=== PATIENT | male | born 1960 | race Caucasian/White ===

== ENCOUNTER 2024-10-23 13:57 | Outpatient (CLI) | payer OTHER, SELFPAY ==
--- NOTE | 2024-10-23 11:45 | DI.RAD_ITS ---
Exam(s) XR LUMBAR SPINE COMP W FLEX/EX EXAM: XR LUMBAR SPINE COMP W FLEX/EX CLINICAL HISTORY: pain M47.816 SPONDYLOSIS M54.16 RADICULOPATHY M51.369 DISC DEGENERATION. TECHNIQUE: 2D digital imaging was performed of the lumbar spine. Seven images were obtained. AP, l ateral, right oblique, left oblique, flexion, extension and L5-S1 spot views were obtained. COMPARISON: No exams were available for comparison FINDINGS: BONES: No fracture or destructive lesion. Endplate osteophytes are seen at multiple levels of the lum bar spine, but most marked at L4-5 and L5-S1. Degenerative changes of the facets are seen at multiple levels of the lumbar spine. DISKS: There is marked disc space narrowing at L4-L5. Moderately severe disc space narrowing is seen at L1-L2 and L5-S1. There is also mild narrowing of the disc space at T12-L1. ALIGNMENT: There is L5 spondylolysis and grade 2 spondylolisthesis of L5 on S1. There is L4 spondylo lysis and grade 2 spondylolisthesis of L4 on L5. There is no significant change with flexion or exten angela. SOFT TISSUE: Normal. IMPRESSION: 1. L5 spondylolysis and grade 2 spondylolisthesis of L5 on S1. 2. L4 spondylolysis and grade 2 spondylolisthesis of L4 on L5. 3. There is no change in alignment of the lumbar spine with flexion or extension. 4. Moderately severe degenerative changes seen in the lumbar spine. DATA REPOSITORY: RADIATION DOSE DELIVERED:
== END 2024-10-23 14:17 ==
LOC: DI 14:02
DX: M47.816 Spondylosis without myelopathy or radiculopathy, lumbar region (principal); M43.16 Spondylolisthesis, lumbar region
CPT/HCPCS: 72114

== ENCOUNTER 2024-11-18 01:12 | Outpatient (CLI) | payer OTHER, SELFPAY ==
--- NOTE | 2024-11-18 07:15 | DI.MRI_ITS ---
Exam(s) MR LUMBAR SPINE WO EXAM: MR LUMBAR SPINE WO CLINICAL HISTORY: pain,LUMBAR SPONDYLOSIS,RADICULITIS,SEGMENT DISEASE WITH SPONDYLOLISTHESIS. TECHNIQUE: Multiplanar multisequence MRI of the Lumbar spine was performed. COMPARISON: CR XR LUMBAR SPINE COMP W FLEX/EX from 10/23/2024 FINDINGS: Conus medullaris is at the L1 level. There is no evidence of conus mass nor subjacent clumping of in trathecal nerve roots to suggest arachnoiditis. The distal thecal sac appears unremarkable, located at S2-3 level. There is no evidence of Tarlov intrasacral cysts nor other significant findings withi n the sacral canal Bones:There is some height loss L1 body as well as prominent STIR bright marrow edema signal abnormal ity in the L1 vertebral body and pedicles, these findings consistent with recent compression fracture . There is approximately 25 percent height loss of this vertebral body. No evidence of paravertebra l mass at this level. With respect to the individual levels... T11-T12: There is advanced disc space narrowing at this level, more so on the left than the right bernice e there are Modic type 1 sub endplate marrow edema changes on the left side of this diminished disc s pace and there also left-sided osteophytes. There is broad annular bulging at this level with modera te central canal stenosis. On the sagittal T2 images there is subtle suggestion of signal abnormalit y in the cord at this level. Unfortunately the axial images do not go above the T12-L1 level. There is significant foraminal stenosis on the left side at this level; less so on the right side. T12-L1: This level exhibits normal disc height. There are Schmorl's node invagination evident in the inferior endplate of L1. No discitis signal evident. There is no significant disc herniation at th is level and central canal dimensions are within normal limits. No prominent foraminal stenosis evid ent on either side at this level. Moderate degenerative changes in the facet joints. L1-2: This level exhibits advanced chronic-type disc space narrowing, slightly more so on the right s maxi. There are lateral right-sided osteophytes bridging L1-2 at this level. Compression fracture of L1 as described above, with approximately 25 percent height loss and bone edema. There is mild retr olisthesis of L1 upon L2. There is broad symmetrical annular bulging. There is moderate central can al stenosis. There is severe bilateral foraminal stenosis at this level due to the annular bulging a nd retrolisthesis and bilateral facet arthropathy. L2-3: This level exhibit disc height. However, posteriorly there is some annular bulging resulting i n mild central spinal canal stenosis. There is no prominent focal disc herniation. There is insert facet arthropathy but only mild bilateral foraminal stenosis. L3-4: Normal disc height. Mild symmetrical annular bulging. Central canal dimensions lower normal. There is no significant foraminal stenosis this level. There are degenerative facet joint arthropat hy changes. L4-5: At this level there is advanced disc space narrowing and there is 12-13 mm and anterolisthesis of L4 upon L5 due to bilateral pars defects at this level. There is also the typical pseudo herniati on of the annulus at this level, the annulus remaining with the lower (L5) vertebral body. However, there is no true disc herniation and central canal dimensions are increased in the AP dimension becau se of the anterior slippage. However, there is severe bilateral foraminal stenosis at this level due to the lateral recesses being carried forward and the severe disc height loss. These findings resul t in severe compression of the exiting nerve roots bilaterally between the overlying L4 pedicles and the underlying pseudo herniation of the annulus at this level. There is mild bilateral facet arthrop athy at this level L5-S1: At this level there is also advanced disc space narrowing and there is 12 mm anterolisthesis o f L5 upon S1 due to bilateral pars defects at L5 level. There is no disc herniation at this level. Although there is no central canal stenosis at this level, there is severe bilateral foraminal stenos is due to lateral recesses being carried forward and the severe disc height loss. This causes signif icant impingement/compression of the exiting nerve roots bilaterally between the overlying L5 pedicle s and subjacent pseudo herniation of the L5-S1 annulus. There are no obvious degenerative changes in the L5-S1 facet joints. Soft tissues: There is a benign exophytic cyst off superior pole the right kidney noted which measur es 3.5 x 3.5 cm. IMPRESSION: 1. There is an acute or subacute compression fracture of the L1 vertebral body as described above. 2. There is significant anterior listhesis of L4 upon L5 and L5 upon S1 due to bilateral pars defects at both the L4 and L5 vertebrae, this resulting in approximately 12 mm anterior slippage of L4 upon L5 and L5 upon S1. There is severe bilateral foraminal stenosis at both of these levels due to the a nterior slippage at these levels and severe disc height loss at both levels. This together with the forward displacement of the lateral recesses by the listhesis at these 2 levels results in severe com pression of the exiting nerve roots bilaterally between the overlying pedicles and underlying annulus . 3. Incidentally noted at T11-T12 level (peripheral aspect of field of view of this lumbar study) ther e is moderate central canal stenosis and what appears to be some abnormal signal in the spinal cord a t this level seen on the sagittal T2 images. This is difficult to confirm because of the absence of axial T2 images at this level which is beyond the field of view. Recommend additional axial T2 seque nces to cover this level. 4. other findings as above. DATA REPOSITORY:
== END 2024-11-18 01:32 ==
LOC: DI 01:13
PROVIDERS: Visit Provider Anesthesiology Pain Medicine
DX: M47.816 Spondylosis without myelopathy or radiculopathy, lumbar region
CPT/HCPCS: 72148